=== PATIENT | female | born 1955 | race Caucasian/White ===

== ENCOUNTER 2023-10-29 11:25 | Emergency (ER) | payer OTHER ==
[~2023-10-29] VITALS: Ht 165.1 cm; Wt 112.9 kg
[2023-10-29 11:53] VITALS: BP 155/64; PULSE 68; RESP 16; TEMP 97.8; O2SAT 100
[2023-10-29] MEDS: MECLIZINE 25 MG TAB PO ONE (12:29)
[2023-10-29] MEDS: ACETAMINOPHEN 325 MG TAB PO ONE (12:30)
[2023-10-29 13:01] LABS: BASOPHILS % (AUTO) 0.6 % (0.0-2.0); EOSINOPHILS # (AUTO) 0.1 K/uL (0-0.4); EOSINOPHILS % (AUTO) 1.5 % (0.0-4.0); HEMATOCRIT 42.9 % (36-48); HEMOGLOBIN 14.5 g/dL (12.0-16.0); LYMPHOCYTES # (AUTO) 2.2 K/uL (2.5-16.5); MEAN CORPUSCULAR HEMOGLOBIN 30 pg (27-31); MEAN CORPUSCULAR HGB CONC 34 g/dL (33-37); MEAN CORPUSCULAR VOLUME 89.5 fL (80-94); MONOCYTES # (AUTO) 0.7 K/uL (0.8-1.0); MONOCYTES % (AUTO) 9.6 % (1.7-9.3); NEUTROPHILS # (AUTO) 4.6 K/uL (1.8-7.7); NEUTROPHILS % (AUTO) 59.3 % (42.2-75.2); PLATELET COUNT (AUTO) 141 K/uL (140-450); RED BLOOD CELL COUNT(AUTO) 4.79 MIL/uL (4.20-5.40); RED CELL DISTRIBUTION WIDTH 13.4 % (11.6-13.7); WHITE BLOOD COUNT (AUTO) 7.7 K/uL (4.8-10.8)
[2023-10-29 13:16] LABS: ANION GAP 10.4 (8-16); CALCIUM 8.8 mg/dL (8.5-10.1); CARBON DIOXIDE 29.9 mmol/L (21-32); CREATININE 0.6 mg/dL (0.6-1.3); POTASSIUM 4.3 mmol/L (3.5-5.1)
[2023-10-29 13:28] LABS: ALANINE AMINOTRANSFERASE 33 U/L (12-78); ALBUMIN 3.4 g/dL (3.4-5.0); ALKALINE PHOSPHATASE 74 U/L (50-136); ASPARTATE AMINOTRANSFERASE 16 U/L (15-37); BILIRUBIN,DIRECT 0.1 mg/dL (0.0-0.3); TOTAL BILIRUBIN 0.4 mg/dL (0.0-1.0); TOTAL PROTEIN, SERUM 8.2 g/dL (6.4-8.2)
[2023-10-29 13:31] LABS: FREE T4 (FREE THYROXINE) 0.91 ng/dL (0.76-1.46); THYROID STIMULATING HORMONE 3.6 uIU/mL (0.34-3.74)
[2023-10-29] MEDS ORDERED: MECL-303 PO (14:08)
[2023-10-29 14:15] VITALS: BP 147/56; PULSE 71; RESP 18; TEMP 97.8; O2SAT 99
== END 2023-10-29 14:15 | disposition home or self-care (01) ==
LOC: MED 11:25
DX: R42 Dizziness and giddiness (principal); E03.9 Hypothyroidism, unspecified; Z79.899 Other long term (current) drug therapy
CPT/HCPCS: 36415; 71045; 80048; 80076; 81002; 82948; 84439; 84443; 84484; 85025; 93005; 99285; J8597

== ENCOUNTER 2023-11-02 12:16 | Emergency (ER) | payer OTHER ==
[~2023-11-02] VITALS: Ht 165.1 cm; Wt 103.9 kg
[~2023-11-02 12:16] MED LIST: MECL-303 PO
[2023-11-02 12:56] VITALS: BP 129/67; PULSE 79; RESP 20; TEMP 97.8; O2SAT 95
[2023-11-02 14:12] LABS: APPEARANCE,URINE CLEAR (CLEAR); BILIRUBIN,URINE NEGATIVE (NEGATIVE); BLOOD, URINE NEGATIVE (NEGATIVE); COLOR,URINE YELLOW (YELLOW); LEUKOCYTE ESTERASE ,URINE NEGATIVE (NEGATIVE); NITRITE, URINE NEGATIVE (NEGATIVE); PROTEIN,URINE NEGATIVE (NEGATIVE); UGLUCOSE NEGATIVE (NEGATIVE); UROBILINOGEN,URINE 0.2 EU/dL (0.2 - 1)
[2023-11-02 14:17] LABS: BASOPHILS # (AUTO) 0.1 K/uL (0.00-0.22); BASOPHILS % (AUTO) 0.7 % (0.0-2.0); EOSINOPHILS # (AUTO) 0.1 K/uL (0-0.4); EOSINOPHILS % (AUTO) 1.3 % (0.0-4.0); HEMATOCRIT 44.5 % (36-48); LYMPHOCYTES # (AUTO) 2.3 K/uL (2.5-16.5); LYMPHOCYTES % (AUTO) 25.3 % (20.5-51.1); MEAN CORPUSCULAR HEMOGLOBIN 30 pg (27-31); MEAN CORPUSCULAR HGB CONC 34 g/dL (33-37); MONOCYTES # (AUTO) 0.7 K/uL (0.8-1.0); MONOCYTES % (AUTO) 7.9 % (1.7-9.3); NEUTROPHILS # (AUTO) 5.9 K/uL (1.8-7.7); NEUTROPHILS % (AUTO) 64.8 % (42.2-75.2); PLATELET COUNT (AUTO) 146 K/uL (140-450); RED BLOOD CELL COUNT(AUTO) 4.95 MIL/uL (4.20-5.40); RED CELL DISTRIBUTION WIDTH 13.4 % (11.6-13.7); WHITE BLOOD COUNT (AUTO) 9.1 K/uL (4.8-10.8)
[2023-11-02 14:40] LABS: ALANINE AMINOTRANSFERASE 37 U/L (12-78); ALBUMIN 3.4 g/dL (3.4-5.0); ALKALINE PHOSPHATASE 76 U/L (50-136); ANION GAP 9.8 (8-16); ASPARTATE AMINOTRANSFERASE 19 U/L (15-37); CALCIUM 8.3 mg/dL (8.5-10.1); CARBON DIOXIDE 30.1 mmol/L (21-32); CHLORIDE 103 mmol/L (98-107); CREATININE 0.7 mg/dL (0.6-1.3); GFR ARICAN-AMERICAN 107 mL/min (>90); GFR NON ARICAN-AMERICAN 89 mL/min (>90); GLUCOSE 131 mg/dL (74-106); LIPASE 40 U/L (16-77); POTASSIUM 3.9 mmol/L (3.5-5.1); SODIUM SERUM 139 mmol/L (136-145); TOTAL BILIRUBIN 0.4 mg/dL (0.0-1.0); TOTAL PROTEIN, SERUM 8.5 g/dL (6.4-8.2); UREA NITROGEN, BLOOD 9 mg/dL (7-18)
[2023-11-02] MEDS ORDERED: METOCLOPRAMIDE 10 MG/2 ML INJ VIAL ONE (16:19)
[2023-11-02] MEDS: METOCLOPRAMIDE 10 MG/2 ML INJ VIAL IM ONE (16:28)
[2023-11-02] MEDS ORDERED: METO-486 PO (17:17)
[2023-11-02 17:25] VITALS: BP 129/67; PULSE 79; RESP 20; TEMP 97.8; O2SAT 95
[2023-11-02 17:34] LABS: FLU A ANTIGEN negative (NEGATIVE); FLU B ANTIGEN NEGATIVE (NEGATIVE)
== END 2023-11-02 17:25 | disposition home or self-care (01) ==
LOC: MED 12:16
DX: H81.392 Other peripheral vertigo, left ear (principal); Z20.822 Contact with and (suspected) exposure to COVID-19; I10 Essential (primary) hypertension; E03.9 Hypothyroidism, unspecified; Z79.899 Other long term (current) drug therapy
CPT/HCPCS: 36415; 70450; 80053; 81003; 83690; 84484; 85025; 87426; 87804; 93005; 96372; 99285; J2765

== ENCOUNTER 2023-11-18 10:57 | Emergency (ER) | payer OTHER ==
[~2023-11-18] VITALS: Ht 160 cm; Wt 102.1 kg
[~2023-11-18 10:57] MED LIST changes: +METO-486 PO
[2023-11-18 11:13] VITALS: BP 155/75; PULSE 72; RESP 16; TEMP 98.1; O2SAT 98
[2023-11-18 11:57] VITALS: BP 127/73; PULSE 77; RESP 19; TEMP 98.5; O2SAT 97
== END 2023-11-18 13:01 | disposition home or self-care (01) ==
LOC: MED 10:57
DX: R42 Dizziness and giddiness (principal); I11.9 Hypertensive heart disease without heart failure; E03.9 Hypothyroidism, unspecified; Z79.899 Other long term (current) drug therapy
CPT/HCPCS: 99281

== ENCOUNTER 2023-12-16 10:47 | Emergency (ER) | payer OTHER ==
[~2023-12-16] VITALS: Ht 152.4 cm; Wt 104.3 kg
[2023-12-16 11:03] VITALS: BP 139/84; PULSE 85; RESP 18; TEMP 98.6; O2SAT 98
[2023-12-16] MEDS: diphenhydrAMINE 50 MG/ML VIAL IM ONE (14:42)
[2023-12-16] MEDS: METOCLOPRAMIDE 10 MG/2 ML INJ VIAL IM ONE (14:43)
[2023-12-16] MEDS: KETOROLAC 30 MG/ML VIAL IM ONE (14:43)
[2023-12-16] MEDS: ACETAMINOPHEN EXTRA STRENGTH 500 MG TAB PO ONE (14:43)
[2023-12-16] MEDS ORDERED: IBUP-2218 PO (15:49)
[2023-12-16] MEDS ORDERED: ACET-10509 PO (15:49)
[2023-12-16 16:01] VITALS: BP 135/80; PULSE 80; RESP 18; TEMP 98.7; O2SAT 98
== END 2023-12-16 16:01 | disposition home or self-care (01) ==
LOC: MED 10:47
DX: R51.9 Headache, unspecified (principal); I11.0 Hypertensive heart disease with heart failure; E03.9 Hypothyroidism, unspecified; E11.9 Type 2 diabetes mellitus without complications; Z79.4 Long term (current) use of insulin; Z79.899 Other long term (current) drug therapy
CPT/HCPCS: 70450; 96372; 99285; J1200; J1885; J2765

== ENCOUNTER 2024-03-01 14:15 | Emergency (ER) | payer OTHER ==
[~2024-03-01] VITALS: Ht 152.4 cm; Wt 102.3 kg
[~2024-03-01 14:15] MED LIST changes: +ACET-10509 PO; +IBUP-2218 PO
[2024-03-01 14:22] VITALS: BP 155/67; PULSE 75; RESP 16; TEMP 98.1; O2SAT 96
[2024-03-01 15:49] LABS: BASOPHILS % (AUTO) 0.5 % (0.0-2.0); EOSINOPHILS # (AUTO) 0.1 K/uL (0-0.4); EOSINOPHILS % (AUTO) 1.7 % (0.0-4.0); HEMOGLOBIN 14.8 g/dL (12.0-16.0); LYMPHOCYTES # (AUTO) 1.9 K/uL (2.5-16.5); LYMPHOCYTES % (AUTO) 24.5 % (20.5-51.1); MEAN CORPUSCULAR HEMOGLOBIN 30 pg (27-31); MEAN CORPUSCULAR HGB CONC 34 g/dL (33-37); MEAN CORPUSCULAR VOLUME 89.2 fL (80-94); MONOCYTES # (AUTO) 0.7 K/uL (0.8-1.0); MONOCYTES % (AUTO) 8.9 % (1.7-9.3); NEUTROPHILS % (AUTO) 64.4 % (42.2-75.2); PLATELET COUNT (AUTO) 138 K/uL (140-450); RED BLOOD CELL COUNT(AUTO) 4.94 MIL/uL (4.20-5.40); WHITE BLOOD COUNT (AUTO) 7.8 K/uL (4.8-10.8)
[2024-03-01 16:11] LABS: ANION GAP 11.9 (8-16); CALCIUM 8.7 mg/dL (8.5-10.1); CARBON DIOXIDE 29.2 mmol/L (21-32); CREATININE 0.7 mg/dL (0.6-1.3); POTASSIUM 4.1 mmol/L (3.5-5.1)
[2024-03-01 19:00] VITALS: BP 145/71; PULSE 64; RESP 16; TEMP 98.1; O2SAT 96
== END 2024-03-01 20:20 | disposition home or self-care (01) ==
LOC: MED 14:15
DX: I11.9 Hypertensive heart disease without heart failure (principal); E11.9 Type 2 diabetes mellitus without complications; E03.9 Hypothyroidism, unspecified; Z79.899 Other long term (current) drug therapy; Z98.890 Other specified postprocedural states
CPT/HCPCS: 36415; 80048; 84443; 85025; 99283